=== PATIENT | male | born 1985 | race Two or more races ===

== ENCOUNTER 2023-03-14 03:01 | Emergency (ER) | payer SELFPAY ==
[2023-03-14 03:11] VITALS: BP 136/102; PULSE 83; RESP 16; TEMP 97.9; BMI 23.7
[2023-03-14] MEDS ORDERED: DIPHTH,PERTUSS(ACELL),TET 0.5 ML DISP.SYRIN IM ONE (03:13)
[2023-03-14] MEDS: DIPHTH,PERTUSS(ACELL),TET 0.5 ML DISP.SYRIN IM ONE (03:16)
[2023-03-14] MEDS ORDERED: LIDOCAINE HCL 2% (50ML VIAL) INF ONE (03:21)
[2023-03-14] MEDS ORDERED: LIDOCAINE HCL 2% (20ML MULTI-DOSE VIAL) ONE (03:29)
== END 2023-03-14 04:37 | disposition home or self-care (01) ==
LOC: FER 03:01
PROC: 0HQ1XZZ Repair Face Skin, External Approach (ICD-10-PCS; principal; 2023-03-14)
PROC: 3E0234Z Introduction of Serum, Toxoid and Vaccine into Muscle, Percutaneous Approach (ICD-10-PCS; 2023-03-14)
DX: S01.111A Laceration without foreign body of right eyelid and periocular area, initial encounter (principal); W22.8XXA Striking against or struck by other objects, initial encounter
CPT/HCPCS: 90715; 99282-25